=== PATIENT | male | born 1950 | race Caucasian/White ===

== ENCOUNTER 2022-11-16 20:33 | Emergency (ER) | payer MEDICARE, OTHER ==
[~2022-11-16] VITALS: Ht 180.3 cm; Wt 91.6 kg
--- OUTSIDE RECORDS SUMMARY | 2022-11-16 20:51 | XMS ---
PreManage Notification: LORRAINE BANGURA [employer] Events No recent Security Events currently on file CRITERIA MET - [facility] CARE PROVIDERS There are no care providers on record at this time. Carlos has no Care Guidelines for this patient. Aaron VISIT COUNT (12 MO.) 1 BRIEN Robbins TOTAL 1 NOTE: Visits indicate total known visits. ED/UCC VISIT TRACKING (12 MO.) 11/16/2022 20:34 BRIEN Olivares [place] TYPE: Emergency COMPLAINT: - GENERALIZED PAIN INPATIENT VISIT TRACKING (12 MO.) [facility] DIAGNOSES: 49553. Thrombocytopenia, unspecified [address]96. Unspecified place in unspecified non-institutional (private) residence as the place of occurrence of the external cause 30367. Anemia, unspecified 01155. Rhabdomyolysis 56368. Unspecified fall, initial encounter 50316. Weakness 05656. Other disorders of phosphorus metabolism 31779. Acute cystitis without hematuria 10[facility]01[facility]2022 11:07 [facility] DIAGNOSES: 20588. C61, C79.51 (ICD-10-CM) - 185, 198.5 (ICD-9-CM) - Prostate cancer metastatic to bone (HCC) 10/01/2022 10:41 [facility] DIAGNOSES: 84082. Encounter for other preprocedural examination [email or web address]
[2022-11-16] MEDS ORDERED: HYDROCODON-ACE1 EA10 PO (21:16)
[2022-11-16] MEDS ORDERED: LISINOPRIL2.5 MG NG (21:17)
[2022-11-16] MEDS ORDERED: TAMSULOSIN HCL0.4 MG PO (21:17)
[2022-11-16] MEDS ORDERED: FINASTERIDE5 MG PO (21:17)
[2022-11-16] MEDS ORDERED: METOPROLOL TART25 MG PO (21:17)
[2022-11-16] MEDS ORDERED: PANTOPRAZOLE SO40 MG PO (21:18)
[2022-11-16] MEDS ORDERED: ROSUVASTATIN CA20 MG PO (21:18)
[2022-11-16] MEDS ORDERED: ADULT ASPIRIN R81 MG PO (21:19)
[2022-11-16] MEDS ORDERED: ONDANSETRON ODT8 MG (21:20)
== END 2022-11-17 04:30 | disposition home or self-care (01) ==
LOC: ED 20:33
DX: D64.9 Anemia, unspecified (principal); E83.51 Hypocalcemia; C61 Malignant neoplasm of prostate; D69.6 Thrombocytopenia, unspecified; Z20.822 Contact with and (suspected) exposure to COVID-19; Z88.0 Allergy status to penicillin; Z79.899 Other long term (current) drug therapy; Z79.82 Long term (current) use of aspirin
CPT/HCPCS: 36415; 36430; 71045; 80053; 81001; 83735; 85025; 85610; 85730; 86850; 86900; 86901; 86922; 87502; 96361; 96374; 96375; 99285-25; C9803; J1170; J2405; J7040; P9016; U0003

== ENCOUNTER 2022-11-18 11:18 | Emergency (ER) | payer MEDICARE, OTHER ==
[~2022-11-18] VITALS: Ht 180.3 cm; Wt 95.2 kg
[~2022-11-18 11:18] MED LIST: ADULT ASPIRIN R81 MG PO; FINASTERIDE5 MG PO; HYDROCODON-ACE1 EA10 PO; LISINOPRIL2.5 MG NG; METOPROLOL TART25 MG PO; ONDANSETRON ODT8 MG; PANTOPRAZOLE SO40 MG PO; ROSUVASTATIN CA20 MG PO; TAMSULOSIN HCL0.4 MG PO
--- OUTSIDE RECORDS SUMMARY | 2022-11-18 11:20 | XMS ---
PreManage Notification: LORRAINE BANGURA Security [employer] T[employer] Events No recent Security Events currently on file CRITERIA MET - [facility] - [facility] - 2 Visits in 30 Days CARE PROVIDERS There are no care providers on record at this time. Carlos has no Care Guidelines for this patient. Aaron [facility] MO[facility] NOTE: Visits indicate total known visits. ED/C VISIT TRACKING (12 MO.) 11/18/2022 11:18 [facility] [place] TYPE: Emergency COMPLAINT: - FALL 11/16/2022 20:34 BRIEN Olivares [place] TYPE: Emergency COMPLAINT: - GENERALIZED PAIN INPATIENT VISIT TRACKING (12 MO.) 10/26/2022 07:53 [facility] DIAGNOSES: 29420. Anemia, unspecified 26006. Rhabdomyolysis 82678. Unspecified fall, initial encounter 06510. Weakness 17466. Other disorders of phosphorus metabolism 27240. Acute cystitis without hematuria 37348. Thrombocytopenia, unspecified [address]. Unspecified place in unspecified non-institutional (private) residence as the place of occurrence of the external cause 10/01/2022 11:07 [facility] DIAGNOSES: 55193. C61, C79.51 (ICD-10-CM) - 185, 198.5 (ICD-9-CM) - Prostate cancer metastatic to bone (HCC) 10/01/2022 10:41 [facility] Mame Hunt [place] TYPE: Inpatient DIAGNOSES: 72689. Encounter for other preprocedural examination [email or web address]
== END 2022-11-18 16:48 | disposition home or self-care (01) ==
LOC: ED 11:18
DX: S00.531A Contusion of lip, initial encounter (principal); D64.9 Anemia, unspecified; E83.51 Hypocalcemia; C61 Malignant neoplasm of prostate; R10.11 Right upper quadrant pain; M54.50 Low back pain, unspecified; I10 Essential (primary) hypertension; I25.2 Old myocardial infarction; Z88.0 Allergy status to penicillin; Z79.899 Other long term (current) drug therapy; Z79.82 Long term (current) use of aspirin; W05.0XXA Fall from non-moving wheelchair, initial encounter
CPT/HCPCS: 36415; 70450; 71045; 74177; 80053; 85025; A9270; G0480; J7121; Q9967